=== PATIENT | male | born 1975 | race Hispanic/Latino ===

== ENCOUNTER 2019-02-04 15:56 | Emergency (ER) | payer SELFPAY ==
[~2019-02-04] VITALS: Ht 175.3 cm; Wt 158.8 kg
[2019-02-04] MEDS ORDERED: IBUPROFEN 600 MG TAB PO STA (16:16)
[2019-02-04] MEDS ORDERED: COLCRYS0.6 MG PO (17:14)
--- NOTE | 2019-02-04 18:14 | Diagnostic Imaging Report ---
BILATERAL FEET X-RAY - 6 VIEWS HISTORY: ^[id number] ^1700 ^PAIN COMPARISON: None available. FINDINGS: Bones: No acute displaced fracture. Remote posttraumatic deformity of the left medial cuneiform. Osseous alignment is within normal limits. Joints: Moderate degenerative changes of the tarsal and metatarsal bones, bilaterally. Well-corticated bone adjacent to the posterior aspect of the right talus may reflect degenerative change versus age-indeterminate fracture, likely subacute or chronic. Bilateral calcaneal enthesopathic. Soft tissues: Diffuse soft tissue swelling along the right and left forefoot. Soft tissue swelling of the left first toe. IMPRESSION: Degenerative changes of both tarsal and metatarsal bones. Soft tissue swelling along both feet without acute bony abnormality. Soft tissue swelling of the left first toe without bone abnormalities. Signed by: Dr. Cassia Crowder M.D. on 02/04/2019 6:11 PM
--- NOTE | 2019-02-04 18:18 | Diagnostic Imaging Report ---
RIGHT ANKLE X-RAY - 3 VIEWS HISTORY: ^Right lateral malleolar pain ^[id number] ^1700 COMPARISON: None available. FINDINGS: Bones: No acute displaced fracture. Mild widening of the medial malleolus. Joints: Degenerative changes of the uncal joint. Soft tissues: Soft tissue swelling along the right ankle. Few phleboliths along the calf of the right lower extremity. IMPRESSION: Soft tissue swelling surrounding the right uncal with mild widening of the medial malleolus may relate to ligament injury. Recommend stress view for further evaluation. Signed by: Dr. Cassia Crowder M.D. on 02/04/2019 6:15 PM
== END 2019-02-04 19:33 | disposition home or self-care (01) ==
LOC: ER 15:56
DX: M79.672 Pain in left foot (principal); M79.671 Pain in right foot; R26.2 Difficulty in walking, not elsewhere classified; I87.2 Venous insufficiency (chronic) (peripheral); M10.9 Gout, unspecified; I10 Essential (primary) hypertension; E66.01 Morbid (severe) obesity due to excess calories
CPT/HCPCS: 99283